=== PATIENT | female | born 2000 ===

== ENCOUNTER 2021-03-21 23:26 | Emergency (ER) | payer BC, OTHER ==
--- OUTSIDE RECORDS SUMMARY | 2021-03-21 23:29 | XMS REPORT | Continuity of Care Document ---
:2000 Author Organization [facility] t Address [address] [place] [address] Care Team Providers Name Role Phone JEROD SANTACRUZ Primary Care Physician Unavailable Melo Attending Clinician Unavailable JOSELYN Attending Clinician Unavailable Joselyn MARTINEZ Attending Clinician Doctor Unassigned, Name Attending Clinician Unavailable Remberto Howell DO Attending Clinician Jerod Santacruz MD Attending Clinician Yoshi Jaramillo MD Attending Clinician Melo Admitting Clinician Unavailable Payers Payer Name Policy Type Policy Number Effective Date Expiration Date S lizandro [facility] [id number] 2019 00:00:00 [place] [facility] [id number] 2019 HEALTH 00:00:00 Problems Condition Condition Condition Status Onset Resolution Last Treating Co mments Source Name Details Category Date Date Treatment Clinician Date Smoking Smoking Disease Active Univers 04-11 ity of 00:00: [place] 00 Medical Branch Allergies, Adverse Reactions, Alerts Allergy Allergy Status Severity Reaction(s) Onset Inactive Treating Comm ents Source Name Type Date Date Clinician No Known DA Active [facility] [place] No Known DA Active U [facility]ie 5-04 [facility] [place] STRAWBER DRUG Active Hives 2015- Univers RY INGREDI 8- ity of 00:00: [place] 00 Medical Branch Strawber Propensi Active Hives 0 Univer s ry ty to 11-05 ity of adverse 00:00: [place] reaction Medical s Branch Social History Social Habit Start Date Stop Date Quantity Comments Source History of Cigarette Smoker Universi ty of tobacco use [facility] Exposure to Not sure University of SARS-CoV-2 [place] [facility] (event) Branch Alcohol intake 2021-03-06 2021-03-06 Current drinker of Un iversity of 00:00:00 00:00:00 alcohol (finding) [facility] edical [place] Tobacco use and 2020-01-15 2020-01-15 Never used Universit y of exposure 00:00:00 00:00:00 [place] [facility] History SDOH 2019-11-20 2019-11-20 3 University o f Alcohol 00:00:00 00:00:00 [place] [facility] Frequency Branch History SDOH 2019-11-20 2019-11-20 99 University o f Alcohol Std 00:00:00 00:00:00 [place] [facility] Drinks Branch History SDOH 2019-11-20 2019-11-20 99 University o f Alcohol Binge 00:00:00 00:00:00 [place] [facility] Tobacco Comment 2019-11-20 2019-11-20 6-7 ciggaretts a day University of 00:00:00 00:00:00 [facility] Alcohol Comment 2019-01-18 2019-01-18 occassionally Univer sity of 00:00:00 00:00:00 [facility] Sex Assigned At [birth year] Universit y of 00:00:00 00:00:00 [facility] Smoking Status Start Date Stop Date Source Former smoker 2020-01-15 00:00:00 2020-01-15 00:00:00 Universi ty of [facility] Medications Ordered Filled Start Stop Current Ordering Indication Dosage Frequency Signature Comments Components Source Medication Medication Date Date Medication? Clinician (SIG) Name Name norgestimat 2020-04 Yes [id number] 1{tbl} Take 1 Univers e-ethinyl 2-02 tablet by ity o f estradioL 00:00: mouth [place] 0.25-35 00 daily. Medical mg-mcg per Branch tablet norgestimat 2020-04 Yes [id number] 1{tbl} Take 1 Univers e-ethinyl 2-02 tablet by ity o f estradioL 00:00: mouth [place] 0.25-35 00 daily. Medical mg-mcg per Branch tablet Yes Take by Unive rs vit 8-24 mouth. ity of calc,iron,f 15:18: [facility] 55 Medical ( Branch VITAMIN ORAL) Yes Take by Unive rs vit 8-24 mouth. ity of calc,iron,f 15:18: [facility] 55 Medical ( Branch VITAMIN ORAL) PNV 2019-04 Yes [id number] Take 1 Univer s 102-iron-fo 0-12 TAB-CAP/M2 it y of late-dha 00:00: by mouth [place] (VITAFOL FE 00 daily. Medica l PLUS) 90 mg Branch iron- 1 mg-200 mg Cap PNV 2019-04 Yes [id number] Take 1 Univer s 102-iron-fo 0-12 TAB-CAP/M2 it y of late-dha 00:00: by mouth [place] (VITAFOL FE 00 daily. Medica l PLUS) 90 mg Branch iron- 1 mg-200 mg Cap Immunizations Ordered Filled Immunization Date Status Comments [facility] e Immunization Name Name Rho (d) Immune 2019-05-22 Completed University of Globulin 00:00:00 [facility] Rho (d) Immune 2019-05-22 Completed University of Globulin 00:00:00 [facility] Influenza Virus 2019-04-10 Completed Universit y of Vaccine Quad .5 mL 00:00:00 [place] [facility] IM 6+ MO Branch Influenza Virus 2019-04-10 Completed Universit y of Vaccine Quad .5 mL 00:00:00 [facility] IM 6+ MO [place] Vital Signs Vital Name Observation Time Observation Value Comments Source Systolic blood 2021-03-06 14:08:00 113 mm[Hg] Univer sity of pressure [facility] Diastolic blood 2021-03-06 14:08:00 70 mm[Hg] Unive rsity of pressure [facility] Heart rate 2021-03-06 14:08:00 72 /min [facility] Body temperature 2021-03-06 14:08:00 36.89 Bhavya [facility] Respiratory rate 2021-03-06 14:08:00 18 /min [facility] Body height 2021-03-06 14:08:00 170.2 cm [facility] Body weight 2021-03-06 14:08:00 61.236 kg [facility] BMI 2021-03-06 14:08:00 21.14 kg/m2 [facility] Procedures Procedure Date / Time Performing Clinician Source Performed CONSENT FOR 2021-03-06 06:01:00 Doctor Unassigned, Karen Chapman [facility] CONTRACEPTION Name [facility] [id number] 2020-08-07 00:00:00 [facility] [id number] 2020-08-07 00:00:00 [facility] [id number] 2020-08-07 00:00:00 [facility] [id number] 2020-08-06 00:00:00 [facility] [id number] 2020-08-06 00:00:00 [facility] [id number] 2020-08-06 00:00:00 [facility] Encounters Start End Encounter Admission Attending Care Care Encounter Source Date/Time Date/Time Type Type Clinicians Facility Department ID 2020-08-06 Inpatient Melo, [facility] AZAR [id number] [facility] 16:45:00 Nguyen [id number] [facility] 2021-03-24 2021-03-24 Outpatient Francois ALVES [facility] [id number] Univers 08:00:00 08:00:[id number] [facility] 2021-03-24 2021-03-24 Outpatient Francois ALVES [facility] [id number] Univers 08:00:00 08:00:[address] [facility] 2021-03-06 2021-03-06 Office Joselyn KYAMRIT [id number] [facility] 08:03:24 08:40:32 Visit Aspen HINA [id number] i ty of [facility] [id number] [place] PROFESS[place] [id number] W[place] dical NAL 134 Branch [facility] 2021-03-06 2021-03-06 Orders Doctor HEMA [id number] Univers 00:00:00 00:00:00 Only Unassigned, SHOBHA [id number] ity of [place] [id number] Alphonso as [phone] [facility] 009 Branch 2020-06-25 2020-06-25 [facility] [id number] 00:00:00 00:00:00 Outreach [facility] [id number] [facility] [id number] PAVILLION [id number] 2020-01-23 2020-01-23 Orders Doctor HEMA [id number] 00:00:00 00:00:00 Only Unassigned, SHOBHA [id number] [facility] [id number] [id number] 2020-01-20 2020-01-20 Orders Doctor GARRIDO [id number] 00:00:00 00:00:00 Only Unassigned, SHOBHA [id number] [facility] [id number] [id number] 2020-01-18 2020-01-18 Telemedici [facility] [id number] 07:39:41 07:54:41 ne Visit [facility] [id number] Edcarmen Page [id number] Professio [id number] nal 044 Office [address] One 2020-01-17 2020-01-17 Telephone [facility] [id number] 00:00:00 00:00:00 Alexx [facility] [id number] Edcarmen Page [id number] Professio [phone] nal 044 Office [address] One 2020-01-15 2020-01-16 Initial Lynda Jaramillo [facility] [id number] 14:28:05 09:02:23 Cam [place] [id number] Visit [place] 4.2.7.2.686 Ludwig [id number] nal 134 [facility] 2020-01-15 2020-01-15 Orders Doctor GARRIDO [id number] 00:00:00 00:00:00 Only Unassigned, SHOBHA [id number] [place] [facility] 4.2.7.2.686 [id number] [id number] 2020-01-09 2020-01-09 Orders Doctor GARRIDO 1.2.840.114 [id number] 00:00:00 00:00:00 Only Unassigned, SHOBHA [id number] [place] [facility] 4.2.7.2.686 [id number] [id number] Results Test Description Test Time Test Comments Results Result Comments Source PLACENTA THIRD TRIMESTER 2020-08-13 08:39:00 Test Item Value Reference Range Interpretation Comme nts PLACENTA RUN DATE: THIRD 08/13/20 [facility] PAGE 1 RUN TIME: 1100 TRIMESTER Specimen Inquiry RUN USER: INTERFACE (test code = PLACIII) PATIENT: SYDNEY HORN LOC: HUEY Davila #: [id number] AGE/SX: ROOM: [facility] RE08/06/20REG DR: Nguyen Alejo MD : 98 BED: A DIS: 08/10/20 STATUS: DIS IN TLOC: SPEC #: [id number] RECD: STATUS: JAD KEENAN #: [id number] FIDENCIO: 08/07/20- SUBM DR: Nguyen Alejo MD ENTERED: 08/08/20 SP TYPE: PLACIII OTHR DR: ORDERED: LEVEL V SURGICA CODES: [id number] - PLACENTA, NOS PROCEDURES: LEVEL V SURGICA (Incomplete) TISSUES: PLACENTA, NOS - PLACENTA CLINICAL HISTORY 20 year old, IUP @ 34.6 weeks, vaginal, PROM ( david) FINAL DIAGNOSIS Placenta, 34.6 weeks gestational age, vaginal delivery: - t hird trimester placenta, 340 gms (25th percentile) - small villous infarct - patchy vill ous edema - trivascular umbilical cord and membranes free of inflammation CPT: 29702 [facility] GROSS DESCRIPTION The specimen was received in a container, labeled with the patient's name, unit number and designated "placenta". The following attributes are observed: Cord insertion: 5 cm from margin Cord length: 35 cm (one se gment detached) Number of vessels: 3 Cord color: Hui-pink Ot her cord findings: None surface findings: Blue-purple, wrinkled, glist ening Vasculature: Unremarkable vasculature Membranes rupture site: 3 cm to margin Membrane color: Hui-pink Other membrane findings: Semi-translucent The trimmed placental weight: 340 gm Disk measurement: 17 x 14 x 3 cm in greatest dimension Accessory lobes: None Maternal surface: Lobulated and focally disrupted, completeness CONTINUED ON NEXT PAGE RUN DATE: 08/13/20 [facility] PAGE 2 RUN TIME: 1100 Specimen Inquiry RUN USER: INTERFACE SPEC #: [id number] PATIENT: SYDNEY HORN #[id number] (Continued) GROSS DESCRIPTION (Continued) cannot be determined Parenchyma: Red-brown and spongy Parenchyma lesions: A 0.8 cm hui-yellow lesion is identif ied at the periphery and involving less than 1% of the total cut surface Cassettes: A1 through A4 rosa/michelle 08/08/20 Signed Agustina Locke MD 08/13/20 0839 END OF REPORT CBC W/AUTO [id number] 07:28:00 Test Item Value Reference Range Interpretation Comments WHITE BLOOD CELL (test 11.4 K/mm3 6.5-12.3 N code = WBC) RED BLOOD CELL (test 3.11 M/mm3 3.51-4.69 L code = RBC) HEMOGLOBIN (test code = 10.2 g/dL 10.1-13.8 Resu lts verified by HGB) repeat analysis HEMATOCRIT (test code = 31.0 % 32.5-41.8 L Resu lts verified by HCT) repeat analysis MEAN CELL VOLUME (test 99.7 fL 84.6-96.6 H code = MCV) MEAN CELL HGB (test code 32.8 pg 27.3-33.9 N = MCH) MEAN CELL HGB 32.9 gm/dL 32.0-34.2 N CONCETRATION (test code = MCHC) RED CELL DISTRIBUTION 12.5 % 12.2-16.3 N WIDTH (test code = RDW) PLATELET COUNT (test 104 K/mm3 134-363 L RESUL TS CALLED TO code = PLT) .READ BACK & CONFIRMED? .BY BIN 08/08 0724 MEAN PLATELET VOLUME 14.5 fL 9.2-12.7 H (test code = MPV) NEUTROPHIL % (test code 77.6 % 57.9-77.3 H = NT%) LYMPHOCYTE % (test code 13.7 % 14.5-29.7 L = LY%) MONOCYTE % (test code = 7.6 % 3.6-10.2 N MO%) EOSINOPHIL % (test code 0.3 % 0.0-3.0 N = EO%) BASOPHIL % (test code = 0.2 % 0.1-0.9 N BA%) NEUTROPHIL # (test code 8.8 K/mm3 = NT#) LYMPHOCYTE # (test code 1.6 K/mm3 = LY#) MONOCYTE # (test code = 0.9 K/mm3 MO#) EOSINOPHIL # (test code 0.03 K/mm3 = EO#) BASOPHIL # (test code = 0.0 K/mm3 BA#) RBC MORPHOLOGY REQUIRED NORMAL NORMAL (test code = RBCM) PLATELET MORPHOLOGY NORMAL NORMAL REQUIRED (test code = PLTMR) CAPILLARY BLOOD [id number] 19:09:00 Test Item Value Reference Range Interpretation Comments CAPILLARY BLOOD GAS PH (test code 7.365 7.35-7.45 N = PHC) CAPILLARY BLOOD GAS PCO2 (test 40.2 mmHg code = PCO2C) CAPILLARY BLOOD GAS PO2 (test code 28.3 mmHg = PO2C) CBG HCO3 (test code = HCO3C) 22.5 meq/L CBG BASE EXCESS (test code = BEC) -2.7 CBG O2 SATURATION (test code = 51.3 % SATC) CAPILLARY BLOOD GAS TYPE (test CBLV code = TYPEC) CAPILLARY BLOOD GAS FIO2 (test 21.0 % code = FIO2C) ARTERIAL BLOOD [id number] 19:04:00 Test Item Value Reference Range Interpretation Comments ARTERIAL BLOOD GAS PH (test code = 7.243 7.35-7.45 L PHA) ARTERIAL BLOOD GAS PCO2 (test code 48.6 mmHg 35-45 H = PCO2A) ARTERIAL BLOOD GAS PO2 (test code 15.8 mmHg 80-100 LL = PO2A) BICARBONATE TOTAL HCO3 (test code 20.5 meq/L 22-26 L = HCO3) BASE EXCESS (test code = WANG) -7.0 -2.0-+2.0 L ABG O2 SATURATION (test code = 16.5 % 95-100 L SATA) ABG OXIMETRY (test code = OXA) 16.5 % sat ABG TYPE (test code = TYPEA) Arterial FIO2 (test code = FIO2A) 21.0 % PaO2/[id number] 19:04:00 Test Item Value Reference Range Interpretation Comments PaO2/FiO2 (test code = SPW7PDM8) mm/Hg ARTERIAL BLOOD [id number] 19:04:00 Test Item Value Reference Range Interpretation Comments ARTERIAL BLOOD GAS PH (test code = 7.243 7.35-7.45 L PHA) ARTERIAL BLOOD GAS PCO2 (test code 48.6 mmHg 35-45 H = PCO2A) ARTERIAL BLOOD GAS PO2 (test code 15.8 mmHg 80-100 LL = PO2A) BICARBONATE TOTAL HCO3 (test code 20.5 meq/L 22-26 L = HCO3) BASE EXCESS (test code = WANG) -7.0 -2.0-+2.0 L ABG O2 SATURATION (test code = 16.5 % 95-100 L SATA) ABG OXIMETRY (test code = OXA) 16.5 % sat ABG TYPE (test code = TYPEA) Arterial FIO2 (test code = FIO2A) 21.0 % PaO2/[id number] 19:04:00 Test Item Value Reference Range Interpretation Comments PaO2/FiO2 (test code = [id number]) 75.20 mm/Hg AG HEPATITIS B [id number] 22:14:00 Test Item Value Reference Range Interpretation Comments AG HEPATITIS B SURFACE (test code NONREACTIVE NONREACTIVE = HBSAG) IS CONSENT FORM SIGNED FOR HIV TESTING? NAB HEPATITIS C [id number] 22:14:00 Test Item Value Reference Range Interpretation Comments AB HEPATITIS C (test code = NONREACTIVE NONREACTIVE HCVAB) SIGNAL TO CUTOFF (test code = <0.02 <0.80 N CUTOFF) IS CONSENT FORM SIGNED FOR HIV TESTING? NAB [id number] 22:14:00 Test Item Value Reference Range Interpretation Comments AB TREPONEMA (test code = TREPAB) NONREACTIVE NONREACTIVE IS CONSENT FORM SIGNED FOR HIV TESTING? NAB HIV 1 22:14:00 Test Item Value Reference Range Interpretation Comments AB HIV 1 2 (test NONREACTIVE NONREACTIVE Done by [facility] code = [id number]) 4th Gen HIV Ag/Ab Combo Screen IS CONSENT FORM SIGNED FOR HIV TESTING? NAG HEPATITIS B [id number] 20:03:00 Test Item Value Reference Range Interpretation Comments AG HEPATITIS B SURFACE (test code NONREACTIVE NONREACTIVE = HBSAG) IS CONSENT FORM SIGNED FOR HIV TESTING? NAB HEPATITIS C [id number] 20:03:00 Test Item Value Reference Range Interpretation Comments AB HEPATITIS C (test code = HCVAB) NONREACTIVE SIGNAL TO CUTOFF (test code = CUTOFF) <0.80 IS CONSENT FORM SIGNED FOR HIV TESTING? NAB [id number] 20:03:00 Test Item Value Reference Range Interpretation Comments AB TREPONEMA (test code = TREPAB) NONREACTIVE NONREACTIVE IS CONSENT FORM SIGNED FOR HIV TESTING? NAB HIV 1 20:03:00 Test Item Value Reference Range Interpretation Comments AB HIV 1 2 (test code = [id number]) NONREACTIVE IS CONSENT FORM SIGNED FOR HIV TESTING? NCBC W/AUTO [id number] 18:27:00 Test Item Value Reference Range Interpretation Comments WHITE BLOOD CELL (test code = WBC) 10.2 K/mm3 6.5-12.3 N RED BLOOD CELL (test code = RBC) 4.09 M/mm3 3.51-4.69 N HEMOGLOBIN (test code = HGB) 13.5 g/dL 10.1-13.8 N HEMATOCRIT (test code = HCT) 40.1 % 32.5-41.8 N MEAN CELL VOLUME (test code = MCV) 98.0 fL 84.6-96.6 H MEAN CELL HGB (test code = MCH) 33.0 pg 27.3-33.9 N MEAN CELL HGB CONCETRATION (test 33.7 gm/dL 32.0-34.2 N code = MCHC) RED CELL DISTRIBUTION WIDTH (test 12.5 % 12.2-16.3 N code = RDW) PLATELET COUNT (test code = PLT) 151 K/mm3 134-363 N IMMATURE PLATELET FRACTION (test 24.7 % 0.0-10.8 H code = IPF) MEAN PLATELET VOLUME (test code = 14.4 fL 9.2-12.7 H MPV) NEUTROPHIL % (test code = NT%) 76.1 % 57.9-77.3 N LYMPHOCYTE % (test code = LY%) 15.1 % 14.5-29.7 N MONOCYTE % (test code = MO%) 6.7 % 3.6-10.2 N EOSINOPHIL % (test code = EO%) 1.6 % 0.0-3.0 N BASOPHIL % (test code = BA%) 0.1 % 0.1-0.9 N NEUTROPHIL # (test code = NT#) 7.8 K/mm3 LYMPHOCYTE # (test code = LY#) 1.5 K/mm3 MONOCYTE # (test code = MO#) 0.7 K/mm3 EOSINOPHIL # (test code = EO#) 0.16 K/mm3 BASOPHIL # (test code = BA#) 0.0 K/mm3 RBC MORPHOLOGY REQUIRED (test code NORMAL NORMAL = RBCM) PLATELET MORPHOLOGY REQUIRED (test NORMAL NORMAL code = PLTMR) COVID 19 Asymptomatic IH [id number] 17:53:00 Test Item Value Reference Range Interpretation Comments COVID 19 NEGATIVE NEGATIVE This test has b een Asymptomatic IH AG authorize d only for the (test code = detection ofpro teins from COVNONPUIAG) SARS-CoV-2, not for any other viruses orpathogens. N egative results should be treated as presumptive andconfirmed wi th a molecular assay , if necessary for patientmanageme nt. Negative result s do not rule out COVID- 19 andshould not b e used as the sole basis for treatment orpat ient management deci sions, including infec tion controldecision s. Negative result s should be considered i n thecontext of a patient's recent exposure s, history and thepresence of clinical signs and symptoms consis tent withCOVID-19. T his test has not been FD A cleared or approved; th e test hasbeen authori phillip by FDA under an Emerge ncy Use Authorization(E UA) for use by laborato john certified under the CLIA thatmeet the re quirements to perform mode rate, high or waivedcomple xity tests. This juan j t is authorized for use at thePoint of Car e (POC), i.e., in patien t care settingsoperati ng under a CLIA Certificat e of Waiver, Certifi andra ofCompliance, o r Certificate of Accreditation. This test is only authori zemiranda for the duration of thedeclaration that circumstances e xist justifying theauthorizatio n of emergency use o f in vitro diagnostic test sfor detection and/o r diagnosis of CO VID-19 under Ohrvoqz01 4(b)(1) of the Act, 21 U.S .C. 360bbb-3(b)(1), unless theauthorizatio n is terminated or r evoked sooner.
[2021-03-22] MEDS ORDERED: ONDANSETRON 4 MG/2 ML VIAL ONE (02:46)
[2021-03-22] MEDS ORDERED: NA CHLORIDE 0.9% 1,000 ML ONE (02:46)
[2021-03-22] MEDS ORDERED: MORPHINE 2 MG/ML SYR ONE (02:46)
[2021-03-22 03:34] LABS: Absolute Lymphocytes (CBC) 1.6 K/uL (0.7-4.9); Basophils % 0.9 % (0-1.3); Hematocrit 40.7 % (36.0-45.0); Lymphocytes % 47.4 % (15.3-44.8); MPV 11.2 fL (7.6-11.3); RBC Red Blood Cell Count 4.28 M/uL (3.86-4.86)
[2021-03-22 03:49] LABS: Albumin 3.4 g/dL (3.4-5.0); Bilirubin Direct 0.1 mg/dL (0-0.2); Bilirubin Total 0.3 mg/dL (0.2-1.0); Potassium 3.3 mmol/L (3.5-5.1); Protein, Total 7.4 g/dL (6.4-8.2)
[2021-03-22 04:49] LABS: Urine Blood Negative (Negative); Urine Glucose Negative (Negative); Urine Protein 1+ (Negative); Urine Specific Gravity 1.025 (1.005-1.030)
[2021-03-22 05:06] LABS: Urine Specific Gravity/Preg 1.025 (1.005-1.030)
[2021-03-22 05:35] LABS: Urine Appearance CLOUDY (Clear); Urine Bilirubin NEGATIVE (Negative); Urine Blood NEGATIVE (Negative); Urine Color YELLOW (Yellow); Urine Glucose NEGATIVE (Negative); Urine Protein TRACE (Negative); Urine Specific Gravity >=1.030 (1.005-1.030)
--- NOTE | 2021-03-22 05:37 | EDPHYS ---
Physician Documentation [facility] Name: Sarahi Villavicencio Age: 20 yrs Sex: Female : 2000 Arrival Date: 03/21/2021 Time: 23:32 Bed 18 Private MD: ED Physician Stuart Medina HPI: 03/22 02:41 This 20 yrs old Female presents to ER via Ambulatory with complaints of Abdominal Pain. mh7 02:41 The patient presents with abdominal pain right lower quadrant. Onset: The mh7 symptoms/episode began/occurred 2 day(s) ago. The symptoms do not radiate. Associated signs and symptoms: Pertinent positives: nausea, vomiting, and diarrhea, Pertinent negatives: anorexia, blood in stools, chest pain, constipation, dysuria, fever, headache, hematuria, palpitations, shortness of breath, vaginal discharge, vomiting blood. The symptoms are described as intermittent, vague, waxing/waning. Modifying factors: The symptoms are alleviated by nothing, the symptoms are aggravated by nothing. Severity of pain: At its worst the pain was moderate last night, in the emergency department the pain has improved moderately. Also complains of a small itchy rash to left thigh and right thigh for 1 week. She has been applying cortisone cream to the area.. 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 - Social history:: Smoking status: Reported history of juuling and/or vaping. ROS: 02:41 Constitutional: Negative for fever, chills, and weight loss, Eyes: Negative for injury, mh7 pain, redness, and discharge, Neck: Negative for injury, pain, and swelling, Cardiovascular: Negative for chest pain, palpitations, and edema, Respiratory: Negative for shortness of breath, cough, wheezing, and pleuritic chest pain, Back: Negative for injury and pain, : Negative for injury, bleeding, discharge, and swelling, MS/Extremity: Negative for injury and deformity, Neuro: Negative for headache, weakness, numbness, tingling, and seizure, Psych: Negative for depression, anxiety, suicide ideation, homicidal ideation, and hallucinations, Endocrine: Negative for neck swelling, polydipsia, polyuria, polyphagia, and marked weight changes, Hematologic/Lymphatic: Negative for swollen nodes, abnormal bleeding, and unusual bruising. Exam: 02:41 Constitutional: This is a well developed, well nourished patient who is awake, alert, mh7 and in no acute distress. Head/Face: Normocephalic, atraumatic. Eyes: Pupils equal round and reactive to light, extra-ocular motions intact. Lids and lashes normal. Conjunctiva and sclera are non-icteric and not injected. Cornea within normal limits. Periorbital areas with no swelling, redness, or edema. Neck: Trachea midline, no thyromegaly or masses palpated, and no cervical lymphadenopathy. Supple, full range of motion without nuchal rigidity, or vertebral point tenderness. No Meningismus. Chest/axilla: Normal chest wall appearance and motion. Nontender with no deformity. No lesions are appreciated. Cardiovascular: Regular rate and rhythm with a normal S1 and S2. No gallops, murmurs, or rubs. Normal PMI, no JVD. No pulse deficits. Respiratory: Lungs have equal breath sounds bilaterally, clear to auscultation and percussion. No rales, rhonchi or wheezes noted. No increased work of breathing, no retractions or nasal flaring. Back: No spinal tenderness. No costovertebral tenderness. Full range of motion. MS/ Extremity: Pulses equal, no cyanosis. Neurovascular intact. Full, normal range of motion. Neuro: Awake and alert, GCS 15, oriented to person, place, time, and situation. Cranial nerves II-XII grossly intact. Motor strength 5/5 in all extremities. Sensory grossly intact. Cerebellar exam normal. Normal gait. Psych: Awake, alert, with orientation to person, place and time. Behavior, mood, and affect are within normal limits. 02:41 Abdomen/GI: Inspection: abdomen appears normal, Bowel sounds: normal, in all quadrants, mh7 Palpation: moderate abdominal tenderness, in the suprapubic area and right lower quadrant, mass, is not appreciated, rebound tenderness, is not appreciated, voluntary guarding, is not appreciated, involuntary guarding, is not appreciated, no appreciated organomegaly, Rectal exam: the exam is deferred, because of patient request, Indicators: McBurney's point is not tender, Darby's sign is negative, Rovsing's sign is negative, Obturator sign is negative, Psoas sign is negative, Liver: no appreciated palpable abnormalities, Hernia: not appreciated. 02:41 Skin: rash a mild rash is noted, ringworm, on the Left thigh and right thigh. [facility] Vital Signs: 00:42 BP 110 / 75; Pulse 57; Resp 16 S; Temp 98.4(O); Pulse Ox 100% on R/A; Weight 62.14 kg bb (R); Height 5 ft. 8 in. (172.72 cm) (R); Pain 8/10; 04:44 BP 107 / 63; Pulse 50; Resp 16; Pulse Ox 97% on R/A; Pain 6/10; lp1 06:25 BP 95 / 62; Pulse 52; Resp 16; Pulse Ox 98% on R/A; lp1 00:42 Body Mass Index 20.83 (62.14 kg, 172.72 cm) MDM: 05:35 Differential diagnosis: appendicitis, bowel obstruction, diverticulitis, Ectopic [facility] , non-specific abd pain, Ovarian Torsion, Pyelonephritis, Ureterolithiasis, urinary tract infection. Data reviewed: vital signs, nurses notes, lab test result(s), CBC, electrolytes, urinalysis, UPT: negative radiologic studies, CT scan. Data interpreted: Pulse oximetry: on room air is 97 %. Interpretation: normal. 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 Response to treatment: the patient's symptoms have markedly improved after treatment, the patient is now symptom free, patient is well hydrated. 05:37 Patient medically screened. [facility] 03/22 02:40 Order name: Basic Metabolic Panel [facility] 03/22 02:40 Order name: CBC with Diff [facility] 03/22 02:40 Order name: Hepatic Function [facility] 03/22 02:40 Order name: Lipase [facility] 03/22 02:40 Order name: Basic Metabolic Panel; Complete Time: 05:05 [facility] 03/22 02:40 Order name: CBC with Automated Diff; Complete Time: 05:05 [facility] 03/22 02:40 Order name: Liver (Hepatic) Function; Complete Time: 05:05 [facility] 03/22 02:40 Order name: Lipase; Complete Time: 05:05 [facility] 03/22 03:10 Order name: Urinalysis [facility] 03/22 03:27 Order name: CT Abd/Pelvis - IV Contrast Only [facility] 03/22 04:49 Order name: Urine Dipstick-Ancillary; Complete Time: 05:05 [facility] 03/22 04:51 Order name: Urine --Ancillary (enter results); Complete Time: 05:23 [facility] 03/22 05:25 Order name: Urine Culture [facility] 03/22 05:39 Order name: Urine Microscopic Only [facility] 03/22 02:40 Order name: IV Saline Lock; Complete Time: 03:10 [facility] 03/22 02:40 Order name: Labs collected and sent; Complete Time: 03:10 [facility] 03/22 02:40 Order name: Urine Dipstick-Ancillary (obtain specimen); Complete Time: 04:49 [facility] 03/22 02:40 Order name: Urine Test (obtain specimen); Complete Time: 03:10 [facility] Administered Medications: 03:09 Drug: morphine 2 mg Route: IVP; Site: right antecubital; lp1 04:14 Follow up: Response: Pain is decreased 1 03:09 Drug: Zofran (Ondansetron) 4 mg Route: IVP; Site: right antecubital; lp1 04:14 Follow up: Response: No adverse reaction 1 03:10 Drug: NS 0.9% 1000 ml Route: IV; Rate: 1000 ml; Site: right antecubital; lp1 04:49 Follow up: IV Status: Completed infusion; IV Intake: 1000ml lp1 05:54 Drug: Rocephin (cefTRIAXone) 1 grams Route: IV; Rate: per protocol; Site: right lp1 antecubital; 06:11 Follow up: IV Status: Completed infusion; IV Intake: 50ml lp1 Disposition Summary: 03/22/21 05:37 Discharge Ordered Location: Home [facility] Problem: new [facility] Symptoms: have improved [facility] Condition: Stable [facility] Diagnosis - Lower abdominal pain, unspecified [facility] - UTI/ Urinary tract infection, site not specified [facility] - Tinea corporis [facility] Followup: [facility] - With: Private Physician - When: 1 - 2 days - Reason: Worsening of condition, Recheck today's complaints, Continuance of care, Re-evaluation by your physician Followup: [facility] - With: Mynor Nelson MD - When: 1 - 2 days - Reason: Worsening of condition, Recheck today's complaints Discharge Instructions: - Discharge Summary Sheet [facility] - Body Ringworm [facility] - Urinary Tract Infection, Adult, [id number] [facility] - Abdominal Pain, Adult, [id number] [facility] Forms: - Medication Reconciliation Form [facility] - Thank You Letter [facility] - Antibiotic Education [facility] - Prescription Opioid Use [facility] Prescriptions: - ondansetron 4 mg Oral tablet,disintegrating - place 1 tablet by TRANSLINGUAL route every 8 hours As needed; 10 tablet; [facility] Refills: 0, Product Selection Permitted - Clotrimazole 1 % Topical Cream - Apply to affected area 1 application by TOPICAL route every 12 hours for 1 [facility] month; 30 gram; Refills: 0, Product Selection Permitted - Pyridium 200 mg Oral Tablet - take 1 tablet by ORAL route every 8 hours for 2 days; 6 tablet; Refills: 0, [facility] Product Selection Permitted - Bactrim DS 800-160 mg Oral Tablet - take 1 tablet by ORAL route every 12 hours for 7 days; 14 tablet; Refills: 0, [facility] Product Selection Permitted Signatures: Dispatcher [employer] Lorie Young RN RN bb Cheyenne Hopkins RN RN lp1 Stuart Medina MD MD [facility]
--- NOTE | 2021-03-22 05:37 | ER ---
Nurse's Notes [facility] Name: Sarahi Villavicencio Age: 20 yrs Sex: Female : 2000 Arrival Date: 03/21/2021 Time: 23:32 Bed 18 Private MD: Diagnosis: Lower abdominal pain, unspecified;UTI/ Urinary tract infection, site not specified;Tinea corporis Presentation: 03/22 00:42 Chief complaint: Patient states: she has been having abdominal pain with vomiting and bb diarrhea x 2 days also has a rash on her legs which started a week ago. Coronavirus screen: At this time, the client does not indicate any symptoms associated with coronavirus-19. Ebola Screen: No symptoms or risks identified at this time. Initial Sepsis Screen: Does the patient meet any 2 criteria? No. Patient's initial sepsis screen is negative. Does the patient have a suspected source of infection? No. Patient's initial sepsis screen is negative. Risk Assessment: Do you want to hurt yourself or someone else? Patient reports no desire to harm self or others. Onset of symptoms was March 20, 2021. 00:42 Method Of Arrival: Ambulatory bb 00:42 Acuity: PEDRO 3 bb Triage Assessment: 00:44 General: Appears in no apparent distress. Behavior is calm, cooperative. Pain: bb Complains of pain in abdomen. Neuro: Level of Consciousness is awake, alert, obeys commands, Oriented to person, place, time, situation. Cardiovascular: Capillary refill < 3 seconds Patient's skin is warm and dry. Respiratory: Respiratory effort is even, unlabored, Respiratory pattern is regular. GI: Abdomen is non-distended, Reports lower abdominal pain, diarrhea, vomiting. Derm: Skin is pink, warm \T\ dry. Musculoskeletal: Circulation, motion, and sensation intact. 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 - Social history:: Smoking status: Reported history of juuling and/or vaping. Screenin:11 Abuse screen: Denies threats or abuse. Denies injuries from another. Nutritional lp1 screening: No deficits noted. Tuberculosis screening: No symptoms or risk factors identified. Fall Risk None identified. Assessment: 03:10 General: Appears in no apparent distress. Behavior is appropriate for age. Pain: lp1 Complains of pain in right lower quadrant Pain currently is 8 out of 10 on a pain scale. Neuro: Level of Consciousness is awake, alert, obeys commands. Respiratory: Respiratory effort is even, unlabored. GI: Bowel sounds present X 4 quads. Abdomen is tender to palpation in right lower quadrant Patient currently denies nausea, vomiting. Derm: Skin is pink, warm \T\ dry. 06:11 Reassessment: Patient appears in no apparent distress at this time. Patient is alert, lp1 oriented x 3, equal unlabored respirations, skin warm/dry/pink. Patient states feeling better. Vital Signs: 00:42 BP 110 / 75; Pulse 57; Resp 16 S; Temp 98.4(O); Pulse Ox 100% on R/A; Weight 62.14 kg bb (R); Height 5 ft. 8 in. (172.72 cm) (R); Pain 8/10; 04:44 BP 107 / 63; Pulse 50; Resp 16; Pulse Ox 97% on R/A; Pain 6/10; lp1 06:25 BP 95 / 62; Pulse 52; Resp 16; Pulse Ox 98% on R/A; lp1 00:42 Body Mass Index 20.83 (62.14 kg, 172.72 cm) ED Course: 03/21 23:32 Patient arrived in ED. 03/22 00:44 Triage completed. bb 00:44 Arm band placed on Patient placed in waiting room, Patient notified of wait time. bb 02:29 Stuart Medina MD is Attending Physician. [facility] 02:42 Cheyenne Hopkins, RADHA is Primary Nurse. lp1 03:09 Inserted saline lock: 20 gauge in right antecubital area, using aseptic technique. lp1 Blood collected. 03:11 Patient has correct armband on for positive identification. lp1 04:20 CT Abd/Pelvis - IV Contrast Only In Process Unspecified. EDMS 04:44 No provider procedures requiring assistance completed. lp1 05:36 Mynor Nelson MD is Referral Physician. [facility] 06:25 IV discontinued, No redness/swelling at site. Pressure dressing applied. lp1 Administered Medications: 03:09 Drug: morphine 2 mg Route: IVP; Site: right antecubital; lp1 04:14 Follow up: Response: Pain is decreased lp1 03:09 Drug: Zofran (Ondansetron) 4 mg Route: IVP; Site: right antecubital; lp1 04:14 Follow up: Response: No adverse reaction lp1 03:10 Drug: NS 0.9% 1000 ml Route: IV; Rate: 1000 ml; Site: right antecubital; lp1 04:49 Follow up: IV Status: Completed infusion; IV Intake: 1000ml lp1 05:54 Drug: Rocephin (cefTRIAXone) 1 grams Route: IV; Rate: per protocol; Site: right lp1 antecubital; 06:11 Follow up: IV Status: Completed infusion; IV Intake: 50ml lp1 Intake: 04:49 IV: 1000ml; Total: 1000ml. lp1 06:11 IV: 50ml; Total: 1050ml. 1 Outcome: 05:37 Discharge ordered by . 7 06:25 Discharged to home ambulatory. lp1 06:25 Condition: stable 06:25 Discharge instructions given to patient, Instructed on discharge instructions, follow up and referral plans. medication usage, Demonstrated understanding of instructions, follow-up care, medications, Prescriptions given X 4. 06:26 Patient left the ED. 1 Signatures: Dispatcher [employer] Monica Hawley Brenda, RN RN bb Cheyenne Hopkins RN RN 1 Stuart Medina MD MD [facility]
[2021-03-22 05:38] LABS: Urine Microscopic Reflex ORDER UMIC
[2021-03-22 05:47] LABS: Urine Bacteria >50 /HPF (<20); Urine Mucus 2+ /HPF (NONE SEEN); Urine RBC <5 /HPF (NONE SEEN)
[2021-03-22] MEDS ORDERED: CEFTRIAXONE 1000 MG/VIAL ONE (05:51)
[2021-03-22] MEDS ORDERED: NA CHLORIDE 0.9% 50 ML ONE (05:52)
[2021-03-22 06:34] VITALS: TEMP 98.4
[2021-03-22 06:36] VITALS: BP 95/62; O2SAT 98
--- NOTE | 2021-03-23 12:31 | RAD REPORT ---
EXAM DESCRIPTION: CT Abdomen and Pelvis With Intravenous Contrast CLINICAL HISTORY: The patient is 20 years old and is Female; Abd pain;Nausea / vomiting TECHNIQUE: Axial computed tomography images of the abdomen and pelvis with intravenous contrast. S agittal and coronal reformatted images were created and reviewed. This CT exam was performed using one or more of the following dose reduction techniques: automated exposure control, adjustment of t he mA and/or kV according to patient size, and/or use of iterative reconstruction technique. COMPARISON: No relevant prior studies available. FINDINGS: Lung bases: Unremarkable. No mass. No consolidation. ABDOMEN: Liver: Unremarkable. No mass. Gallbladder and bile ducts: Unremarkable. No calcified stones. No ductal dilation. Pancreas: Unremarkable. No mass. No ductal dilation. Spleen: Unremarkable. No splenomegaly. Adrenals: Unremarkable. No mass. Kidneys and ureters: Unremarkable. No solid mass. No hydronephrosis. Stomach and bowel: Unremarkable. No obstruction. No mucosal thickening. PELVIS: Appendix: The appendix is normal. Bladder: Unremarkable. No mass. Reproductive: Unremarkable as visualized. ABDOMEN and PELVIS: Intraperitoneal space: Unremarkable. No free air. No significant fluid collection. Bones/joints: No acute fracture. No dislocation. Soft tissues: Unremarkable. Vasculature: Unremarkable. No abdominal aortic aneurysm. Lymph nodes: Prominent 1.1 cm left inguinal lymph node. IMPRESSION: No acute findings in the abdomen or pelvis. 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 The interpreting radiologist is fully responsible for the content of the report.
== END 2021-03-22 06:26 | disposition home or self-care (01) ==
LOC: ER 23:26
DX: N39.0 Urinary tract infection, site not specified (principal); B35.4 Tinea corporis
CPT/HCPCS: 96365; 96361; 87088; 85025; 87086; 80048; 36415; 81025; 80076; 83690; 74177; 96375; 99284; Q9967; J2270; J7030; J2405; 81003; 81015